=== PATIENT | female | born 1960 | race Caucasian/White ===

== ENCOUNTER → 2016-10-09 | Outpatient (CLI) | payer OTHER ==
--- NOTE | 2016-10-14 13:15 | MAMMOGRAPHY REPORT ---
THIS REPORT HAS BEEN AMENDED. AMENDMENT: 10/16/2016 Darcie Gonsalves M.D. Other prior outside mammograms dated 09/19/2014 and 04/18/2013 have become available for comparison. C ompared to the prior exams, the right 9:00 breast calcifications were not clearly present on the 2014 and 2012 exams. Therefore, additional imaging evaluation with spot magnification views is still rec ommended. The patient will be called to schedule an appointment. Amended BI-RADS: ACR BI-RADS Category 0: Incomplete Evaluation: Need Additional Imaging Evaluation letter sent: [facility] 0 BILATERAL DIGITAL SCREENING MAMMOGRAM TOMOSYNTHESIS WITH CAD: 10/09/2016 CLINICAL HISTORY: Routine screening. Patient has no complaints. TECHNIQUE: Breast tomosynthesis in addition to standard 2D mammography was performed. Current study was also evaluated with a Computer Aided Detection (CAD) system. COMPARISON: Comparison is made to exam dated: 01/25/2016 mammogram - [facility]. BREAST COMPOSITION: The tissue of both breasts is heterogeneously dense, which may obscure small mas ses. FINDINGS: There is a possible small cluster of calcifications within the right breast at approximate ly 9:00, best seen on the c views, for which spot magnification views are recommended for further gage luation. The remainder of both breasts are stable compared to the prior exam, without suspicious masses, calci fications, or areas of architectural distortion noted. A few other scattered bilateral benign-appear ing calcifications are stable. IMPRESSION: ACR BI-RADS CATEGORY 0: INCOMPLETE EVALUATION: NEED ADDITIONAL IMAGING EVALUATION Right breast calcifications, for which additional imaging evaluation is recommended. The patient will be called to schedule an appointment. Approximately 10% of breast cancers are not detected with mammography. A negative mammographic report should not delay biopsy if a clinically suggestive mass is present. Darcie Gonsalves M.D. /:10/13/2016 14:43:42 Health Promotion Specialist: Birgit SOW)(Margaret), [facility] letter sent: Addl Imaging 0 BI-RADS Code: ACR BI-RADS Category 0: Incomplete Evaluation: Need Additional Imaging Evaluation
== END | disposition home or self-care (01) ==
LOC: C.MAMM 16:44
PROVIDERS: ATTEND Family Medicine
DX: Z12.31 Encounter for screening mammogram for malignant neoplasm of breast (principal); R92.1 Mammographic calcification found on diagnostic imaging of breast

== ENCOUNTER → 2016-10-18 | Outpatient (CLI) | payer OTHER ==
--- NOTE | 2016-10-18 14:15 | DIAGNOSTIC IMAGING REPORT ---
ULTRASOUND OF THE PELVIS CLINICAL HISTORY: Menorrhagia. COMPARISON STUDY: No priors. TECHNIQUE: Real-time, grayscale, and color flow sonography of the pelvis is performed both transabdominally and endovaginally. Images are reviewed in the transverse and longitudinal planes. FINDINGS: Uterus: The retroverted uterus is normal in size and heterogeneous in echotexture, measuring 6.8 x 3.4 x 3.9 cm. There are small uterine fibroids measuring up to 2.4 cm. Endometrium: The endometrium is normal in appearance, and the endometrial stripe is normal in thickness measuring up to 0.4 cm. Ovaries: The right ovary was not visualized. Left ovary is normal in size and measures 3.7 x 1.9 x 1.8 cm. There are small left ovarian follicles. Normal Doppler waveforms are shown within the left ovary. Pelvis: There is trace free fluid in the cul-de-sac. No concerning adnexal lesion is seen. IMPRESSION: 1. Retroverted fibroid uterus. 2. The left ovary is normal as visualized. The right ovary was not seen. 3. There is trace and likely physiologic free fluid in the cul-de-sac. Electronically signed by: Jerome Barros M.D. 10/18/2016 2:14 PM Dictated Date/Time: 10/18/2016 2:11 PM
== END | disposition home or self-care (01) ==
LOC: C.ULTRBC 12:22
PROVIDERS: ATTEND Family Medicine
DX: N92.0 Excessive and frequent menstruation with regular cycle (principal); N85.4 Malposition of uterus; D25.9 Leiomyoma of uterus, unspecified

== ENCOUNTER → 2016-10-23 | Outpatient (CLI) | payer OTHER ==
--- NOTE | 2016-10-23 16:39 | MAMMOGRAPHY REPORT ---
UNILATERAL RIGHT DIGITAL DIAGNOSTIC MAMMOGRAM: 10/23/2016 CLINICAL HISTORY: 56-year-old woman called back from screening mammography for a possible new cluster of microcalcifications in the central right breast. Family history of breast cancer = mother. TECHNIQUE: Spot magnification right CC and ML views were obtained. COMPARISON: Comparison is made to exams dated: 10/09/2016 mammogram - [facility] an d 01/25/2016 mammogram - [facility]. BREAST COMPOSITION: The tissue of the right breast is heterogeneously dense, which may obscure small masses. FINDINGS: There are scattered and loosely grouped round benign-appearing microcalcifications through out the superior right breast, stable compared to prior mammograms. However, there is a new faint cl uster of approximately 4 microcalcifications in the approximate 9:00 middle one third of the right br east that was not clearly seen on the prior 2014 and 2012 mammograms. Suggested but not definitive l ayering on the spot magnification ML view to confirm benign milk of calcium. No obvious associated m ass or architectural distortion. Given the strong family history of breast cancer and interval devel opment these microcalcifications are indeterminate, warranting further evaluation with tissue awais g. IMPRESSION: ACR BI-RADS CATEGORY 4B: INTERMEDIATE SUSPICION FOR MALIGNANCY 1. Right breast stereotactic guided biopsy is recommended for a new small cluster of microcalcificat ions in the 9:00 middle one third of the breast. These results and recommendations were discussed with the patient at the time of the exam. She tenta tively scheduled the biopsy prior to leaving our department. Approximately 10% of breast cancers are not detected with mammography. A negative mammographic report should not delay biopsy if a clinically suggestive mass is present. Rosa Guzman M.D. ay/:10/23/2016 13:53:54 Ore Storage Drier: Honey Murray, [facility] letter sent: Abnormal 4/5 BI-RADS Code: ACR BI-RADS Category 4B: Intermediate Suspicion For Malignancy
== END ==
LOC: C.MAMM 13:18
PROVIDERS: ATTEND Family Medicine
DX: R92.1 Mammographic calcification found on diagnostic imaging of breast (principal)

== ENCOUNTER → 2016-11-06 | Outpatient (CLI) | payer OTHER | END | disposition home or self-care (01) | LOC: C.PAPS 16:37 | PROVIDERS: ATTEND Obstetrics & Gynecology | DX: Z12.4 Encounter for screening for malignant neoplasm of cervix (principal); Z11.51 Encounter for screening for human papillomavirus (HPV) ==

== ENCOUNTER → 2017-04-25 | Outpatient (CLI) | payer OTHER ==
--- NOTE | 2017-04-25 12:55 | MAMMOGRAPHY REPORT ---
UNILATERAL RIGHT DIGITAL DIAGNOSTIC MAMMOGRAM TOMOSYNTHESIS WITH CAD: 04/25/2017 CLINICAL HISTORY: Six-month follow-up of right breast calcifications. Stereotactic biopsy was attemp maurice of the calcifications October 2016, however, the calcifications could not be targeted and therefore the biopsy was not performed. The patient reports no current complaints. TECHNIQUE: Breast tomosynthesis in addition to standard 2D mammography was performed. Current study was also evaluated with a Computer Aided Detection (CAD) system. Right CC and MLO 2-D and tomosynthe sis images and spot magnification right cc and ML views were obtained. COMPARISON: Comparison is made to exams dated: 10/31/2016 mammogram, 10/23/2016 mammogram, 10/09/2016 m ammogram - [facility], and 01/25/2016 mammogram - [facility]. BREAST COMPOSITION: The tissue of the right breast is heterogeneously dense, which may obscure small masses. FINDINGS: Spot magnification views of the right breast again demonstrate a small 2 mm cluster of leroy roximately 3-4 faint calcifications in the right 9:00 breast. Possible layering of the calcification s was seen on prior spot magnification lateral views, suggestive of milk of calcium. The calcificati ons are stable on spot magnification views dating back to October 2016. On full-field views, the calcif ications do not appear significantly changed compared to the January 2016 exam. Given the benign m orphology and stability, the calcifications are probably benign and likely represent milk of calcium/ fibrocystic changes. The remainder of the right breast is stable compared to prior exams, without suspicious masses, calci fications, or areas of architectural distortion noted. Other scattered benign-appearing right breast calcifications are stable. IMPRESSION: ACR-BI-RADS CATEGORY 3: PROBABLY BENIGN Small cluster of calcifications in the right 9:00 breast is stable on spot magnification views dating back to October 2016, and on full-field views dating back to January 2016. The calcifications are pr obably benign and recommend bilateral diagnostic tomosynthesis mammograms in 6 months, to reevaluate the right breast calcifications and for routine mammography of the left breast. The patient has been verbally notified of the results. Approximately 10% of breast cancers are not detected with mammography. A negative mammographic report should not delay biopsy if a clinically suggestive mass is present. Darcie Gonsalves M.D. /:04/25/2017 08:30:45 Electronic Equipment Repairmen: Melani SOW)(Margaret), [facility] letter sent: Follow Up Recommended 3 BI-RADS Code: ACR-BI-RADS Category 3: Probably Benign
== END | disposition home or self-care (01) ==
LOC: C.MAMM 08:08
PROVIDERS: ATTEND Family Medicine
DX: R92.0 Mammographic microcalcification found on diagnostic imaging of breast (principal)